=== PATIENT | male | born 1945 | race Two or more races ===

== ENCOUNTER 2018-11-20 12:28 | Emergency (ER) | payer MEDICARE ==
[~2018-11-20] VITALS: Ht 170.2 cm; Wt 95.3 kg
[2018-11-20 12:30] VITALS: BP 100/71
--- NOTE | 2018-11-20 12:40 | NUR ---
ED Nurse Note: Patient brought in by ambulance c/o of left sided upper chest pain, patient states that it started as soon as dialysis started, patient is a [place] speaking male who rates his pain a 8/10 initially, EMS gave patient 2 nitro and 165mg aspirin
[2018-11-20] MEDS ORDERED: Morphine Sulfate 2mg/ml Inj IVP ONE (12:45)
[2018-11-20 13:01] LABS: HEMATOCRIT 23.7 % (42.0-52.0); HEMOGLOBIN 7.8 G/DL (14.2-18.0); MEAN CORPUSCULAR VOLUME 92 FL (80-99); PLATELET COUNT 152 K/UL (150-450); RED BLOOD COUNT 2.59 M/UL (4.70-6.10); RED CELL DISTRIBUTION WIDTH 15.5 % (11.6-14.8); WHITE BLOOD COUNT 12.6 K/UL (4.8-10.8)
[2018-11-20 13:31] LABS: ANION GAP 14 mmol/L (5-15); BLOOD UREA NITROGEN 28 mg/dL (7-18); CARBON DIOXIDE 28 MMOL/L (21-32); CHLORIDE 99 MMOL/L (98-107); CREATININE 4.7 MG/DL (0.55-1.30); SODIUM 140 MMOL/L (136-145)
[2018-11-20 13:46] LABS: ALANINE AMINOTRANSFERASE 15 U/L (12-78); ALBUMIN 3.1 G/DL (3.4-5.0); ALBUMIN/GLOBULIN RATIO 0.9 (1.0-2.7); ALKALINE PHOSPHATASE 118 U/L (46-116); ASPARTATE AMINO TRANSFERASE 26 U/L (15-37); BILIRUBIN,TOTAL 0.5 MG/DL (0.2-1.0); CKMB 12.1 NG/ML (0.0-3.6); CREATINE KINASE 235 U/L (26-308)
[2018-11-20 14:18] VITALS: BP 112/64
--- NOTE | 2018-11-20 14:19 | Diagnostic Imaging Report ---
Indication: Chest pain Comparison: 01/20/2016 A single view chest radiograph was obtained. Findings: There is evidence of a left pleural effusion. The heart is enlarged. There is likely atelectasis at the left lung base given signs of volume loss. Cardiomegaly is present. IMPRESSION: Suspect a small left pleural effusion and atelectasis. Pneumonia not excluded
[2018-11-20] MEDS ORDERED: Heparin 5000 units/ml inj IV ONE (14:45)
[2018-11-20] MEDS ORDERED: Heparin 25,000u/D5W 500ml 500 ML IV SCH (14:45)
--- NOTE | 2018-11-20 14:50 | NUR ---
ED Nurse Note: Patient started on Heparin drip at 10 units/kg/hr
--- NOTE | 2018-11-20 15:26 | Emergency Room Report ---
History of Present Illness General Chief Complaint: Chest Pain Source: Patient Present Illness HPI 73-year-old male presents ED complaining of chest pain. Chest pain for the last 3 days. Sharp, 6 out of 10, nonradiating, midsternal. Was given nitroglycerin by EMS with chest pain somewhat improved. Was at dialysis today while the chest pain was persisting. States he has dialysis Sunday. Denies fevers or chills. Denies cough. No other aggravating relieving factors. Denies any other associated symptoms Allergies: Coded Allergies: No Known Allergies (Unverified , 11/20/18) Patient History Past Medical History: DM, renal disease, dialysis Past Surgical History: none Pertinent Family History: none Social History: Denies: smoking, alcohol use, drug use Immunizations: UTD Reviewed Nursing Documentation: PMH: Agreed; PSxH: Agreed Nursing Documentation-PMH Past Medical History: No History, Except For Hx Hypertension: Yes Hx Diabetes: Yes Hx Dialysis: Yes Review of Systems All Other Systems: negative except mentioned in HPI Physical Exam Vital Signs Date Time Temp Pulse Resp B/P (MAP) Pulse Ox O2 Delivery O2 Flow Rate FiO2 11/20/18 12:24 97.3 84 15 100/71 98 Room Air Sp02 EP Interpretation: reviewed, normal General Appearance: no apparent distress, alert, GCS 15, non-toxic Head: normocephalic, atraumatic Eyes: bilateral eye normal inspection, bilateral eye PERRL ENT: hearing grossly normal, normal pharynx, no angioedema, normal voice Neck: full range of motion, supple/symm/no masses Respiratory: chest non-tender, lungs clear, normal breath sounds, speaking full sentences Cardiovascular #1: regular rate, rhythm, no edema Cardiovascular #2: 2+ carotid (R), 2+ carotid (L), 2+ radial (R), 2+ radial (L) , 2+ dorsalis pedis (R), 2+ dorsalis pedis (L) Gastrointestinal: normal bowel sounds, non tender, soft, non-distended, no guarding, no rebound Rectal: deferred Genitourinary: normal inspection, no CVA tenderness Musculoskeletal: back normal, gait/station normal, normal range of motion, non- tender Neurologic: alert, oriented x3, responsive, motor strength/tone normal, sensory intact, speech normal Psychiatric: judgement/insight normal, memory normal, mood/affect normal, no suicidal/homicidal ideation Reflexes: 3+ bicep (R), 3+ bicep (L), 3+ tricep (R), 3+ tricep (L), 3+ knee (R) , 3+ knee (L) Skin: normal color, no rash, warm/dry, well hydrated Lymphatic: no adenopathy Procedures Critical Care Time Critical Care Time i. I feel this is a highly complex case requiring extensive working including EKG/Rhythm strip, Xray/CT/US, Blood/urine lab work, repeat exams while in ED, and administration of strong opiates/narcotics for pain control, admission to hospital or close patient follow up. Total time: 45 min bedside evaluation and treatment excludes procedures (EKG). Reason for critical care: NSTEMI, ESRD, high troponin Possible complications: hypotension, hypertension, DE, shock, arrhythmias, metabolic acidosis, end organ damage, respiratory failure. Interventions: labs, EKG, CXR, IVFs, morphine, discussion with cardiology at [facility], discussion wtih transfer team at [facility]. Heparin drip and bolus Course: Patient coming in with chest pain 3 days. From dialysis center. Troponin greater than 7. EKG shows no ST elevations. However given significant risk factors patient will be transferred to [facility] for higher level of care. Scars with patient's visual education teacher Dr. Parham who facilitated transfer. started on heparin drip and bolus Consultations: nursing staff, EMS, family Performed by: Dr Michael Tolerated well condition = critical j. because of unstable vital signs this patient had a condition that could potentially threaten life or limb. I feel this is a critical patient who required my full attention while patient was considered critical. Total Critical Care Time excluding procedures was greater than 45 minutes Medical Decision Making Diagnostic Impression: Primary Impression: ESRD (end stage renal disease) on dialysis Additional Impression: NSTEMI (non-ST elevated myocardial infarction) ER Course Hospital Course 73-year-old male presents ED complaining of chest pain x 3 days Differential diagnoses include: DE/unstable angina, contusion, muscle strain, PTX, rib fracture Clinical course Placed on stretcher. After initial history and physical I ordered labs, EKG, chest x-ray labs reviewed- no leukocytosis, BUN/ Cr elevated, Trop > 7 EKG- No ST eelvations, Twave inversions in lateral leads Chest x-ray- no acute process Initially hypotensive. Improved with small IV fluid bolus. Given morphine for pain. Discussed with patient's visual education teacher Dr. Connell; concerned that patient requires emergent cath. He facilitated transfer to [facility] Patient started on heparin bolus and a heparin drip I. I feel this is a highly complex case requiring extensive working including EKG/Rhythm strip, Xray/CT/US, Blood/urine lab work, repeat exams while in ED, and administration of strong opiates/narcotics for pain control, admission to hospital or close patient follow up. Diagnosis - NSTEMI, ESRD on dialysis Transferred in serious condition Labs Test 11/20/18 12:30 11/20/18 12:38 Prothrombin Time 10.9 SEC (9.30-11.50) Prothromb Time International Ratio 1.0 (0.9-1.1) Activated Partial Thromboplast Time 27 SEC (23-33) White Blood Count 12.6 K/UL (4.8-10.8) Red Blood Count 2.59 M/UL (4.70-6.10) Hemoglobin 7.8 G/DL (14.2-18.0) Hematocrit 23.7 % (42.0-52.0) Mean Corpuscular Volume 92 FL (80-99) Mean Corpuscular Hemoglobin 30.3 PG (27.0-31.0) Mean Corpuscular Hemoglobin Concent 33.1 G/DL (32.0-36.0) Red Cell Distribution Width 15.5 % (11.6-14.8) Platelet Count 152 K/UL (150-450) Mean Platelet Volume 5.9 FL (6.5-10.1) Neutrophils (%) (Auto) % (45.0-75.0) Lymphocytes (%) (Auto) % (20.0-45.0) Monocytes (%) (Auto) % (1.0-10.0) Eosinophils (%) (Auto) % (0.0-3.0) Basophils (%) (Auto) % (0.0-2.0) Differential Total Cells Counted 100 Neutrophils % (Manual) 86 % (45-75) Lymphocytes % (Manual) 8 % (20-45) Monocytes % (Manual) 5 % (1-10) Eosinophils % (Manual) 1 % (0-3) Basophils % (Manual) 0 % (0-2) Band Neutrophils 0 % (0-8) Platelet Estimate Adequate Platelet Morphology Normal Hypochromasia 1+ Sodium Level 140 MMOL/L (136-145) Potassium Level 3.0 MMOL/L (3.5-5.1) Chloride Level 99 MMOL/L (98-107) Carbon Dioxide Level 28 MMOL/L (21-32) Anion Gap 14 mmol/L (5-15) Blood Urea Nitrogen 28 mg/dL (7-18) Creatinine 4.7 MG/DL (0.55-1.30) Estimat Glomerular Filtration Rate mL/min (>60) Glucose Level 136 MG/DL (74-106) Calcium Level 9.0 MG/DL (8.5-10.1) Total Bilirubin 0.5 MG/DL (0.2-1.0) Aspartate Amino Transf (AST/SGOT) 26 U/L (15-37) Alanine Aminotransferase (ALT/SGPT) 15 U/L (12-78) Alkaline Phosphatase 118 U/L (46-116) Total Creatine Kinase 235 U/L (26-308) Creatine Kinase MB 12.1 NG/ML (0.0-3.6) Creatine Kinase MB Relative Index 5.1 Troponin I 7.685 ng/mL (0.000-0.056) Pro-B-Type Natriuretic Peptide 70938 pg/mL (0-125) Total Protein 6.7 G/DL (6.4-8.2) Albumin 3.1 G/DL (3.4-5.0) Globulin 3.6 g/dL Albumin/Globulin Ratio 0.9 (1.0-2.7) EKG Diagnostic Results Rate: normal Rhythm: NSR ST Segments: other - twave inversions in inferior leads ASA given to the pt in ED: No - given by ems Rhythm Strip Diag. Results EP Interpretation: yes Rhythm: NSR, no PVC's, no ectopy Chest X-Ray Diagnostic Results Chest X-Ray Diagnostic Results : Chest X-Ray Ordered: Yes # of Views/Limited/Complete: 1 View Indication: Chest Pain EP Interpretation: Yes Interpretation: no consolidation, no effusion, no pneumothorax, no acute cardiopulmonary disease Impression: No acute disease Electronically Signed by: Electronically signed by Dilshad Michael MD Last Vital Signs Date Time Temp Pulse Resp B/P (MAP) Pulse Ox O2 Delivery O2 Flow Rate FiO2 11/20/18 14:18 98.2 80 15 112/64 98 Room Air Status: improved Disposition: XFER SHT-TRM HOSP Condition: Critical Referrals: NON PHYSICIAN (PCP) Dilshad Michael MD Nov 20, 2018 15:26
[2018-11-20 16:00] VITALS: BP 117/59
--- NOTE | 2018-11-20 16:00 | NUR ---
ED Nurse Note: CAlled and gave report to MARYANNE Pineda from [facility]
[2018-11-20 17:05] VITALS: BP 115/59
--- NOTE | 2018-11-20 17:07 | NUR ---
ED Nurse Note: RESTRAINTS D/C WRONG PATIENT
== END 2018-11-20 17:10 | disposition short-term general hospital (02) ==
LOC: EDBD 12:28 → EMR 13:10 → EDBEDREQSVC 13:51 → EMR 17:10
DX: I21.4 Non-ST elevation (NSTEMI) myocardial infarction (principal); E11.22 Type 2 diabetes mellitus with diabetic chronic kidney disease; I12.0 Hypertensive chronic kidney disease with stage 5 chronic kidney disease or end stage renal disease; Z99.2 Dependence on renal dialysis
CPT/HCPCS: 36415; 71045; 80053; 82550; 82553; 83880; 84484; 85007; 85025; 85610; 85730; 93005; 96374; 96375; 99284; J1644; J2270; J7040